=== PATIENT | female | born 1980 | race Caucasian/White ===

== ENCOUNTER 2018-05-22 08:41 | Emergency (ER) | payer MEDICAID, SELFPAY ==
[~2018-05-22] VITALS: Ht 152.4 cm; Wt 69.4 kg
[2018-05-22 09:07] LABS: MICROSCOPIC AUTO
[2018-05-22 09:08] LABS: CULTURE INDICATED? YES
--- NOTE | 2018-05-22 09:39 | NUR ---
TO ROOM FROM LOBBY. NAD.
--- NOTE | 2018-05-22 09:51 | NUR ---
PT REPORTS LOWER ABD PAIN X 1 YEAR, PT WAS SEEN FOR SAME 1 YEAR AGO IN [place] & TOLD TO FOLLOW-UP (UNSURE WHAT HER DIAGNOSIS WAS). PT REPORTS LABOR-LIKE PAIN AFTER INTERCOURSE & WHEN LAYING DOWN X 1 YEAR & GETTING WORSE. PT REPORTS CHANGES IN MENSTURAL CYCLE W/ INCREASED FREQUENCY & LONGER PERIODS.
[2018-05-22 10:15] LABS: BASOPHILS # (AUTO) 0.02 x10^3/uL (0-0.1); BASOPHILS % (AUTO) 0 % (0-1); EOSINOPHILS # (AUTO) 0.05 x10^3/uL (0-0.4); EOSINOPHILS % (AUTO) 1 % (1-7); LYMPHOCYTES # (AUTO) 2.19 x10^3/uL (1-3.4); LYMPHOCYTES % (AUTO) 30 % (22-44); MD NO; MEAN CORPUSCULAR HEMOGLOBIN 29.7 pg (27.0-34.8); MEAN CORPUSCULAR HGB CONC 33.4 g/dL (32.4-35.8); MEAN PLATELET VOLUME 8.4 fL (7.4-10.4); MONOCYTES # (AUTO) 0.38 x10^3/uL (0.2-0.8); MONOCYTES % (AUTO) 5 % (2-9); NEUTROPHILS # (AUTO) 4.73 x10^3/uL (1.8-6.8); NEUTROPHILS % (AUTO) 64 % (42-75); PLATELET COUNT 271 x10^3/uL (130-400); RED BLOOD COUNT 4.64 x10^6/uL (3.82-5.3); RED CELL DISTRIBUTION WIDTH 13.3 % (9.6-15.2)
[2018-05-22 10:29] LABS: ALBUMIN 3.7 g/dL (3.4-5.0); ANION GAP 4 mmol/L (5-15); CALCIUM 8.6 mg/dL (8.5-10.1); CHLORIDE 108 mmol/L (98-107)
[2018-05-22 10:33] LABS: ALANINE AMINOTRANSFERASE 28 U/L (12-78); ALKALINE PHOSPHATASE 74 U/L (45-117); BILIRUBIN,TOTAL 0.4 mg/dL (0.2-1.0); CREATININE 0.81 mg/dL (0.55-1.02); TOTAL PROTEIN 7.1 g/dL (6.4-8.2)
--- NOTE | 2018-05-22 10:48 | NUR ---
pt to us.
--- NOTE | 2018-05-22 11:10 | NUR ---
pt back from us
--- NOTE | 2018-05-22 11:15 | NUR ---
all results back at this time. chart up for recheck.
[2018-05-22 11:16] VITALS: BP 99/61
--- NOTE | 2018-05-22 12:00 | NUR ---
TO BEDSDIDE TO UPDATE ON POC. AWAITING DISPO.
== END 2018-05-22 12:31 | disposition home or self-care (01) ==
LOC: ED 12:25
DX: R10.31 Right lower quadrant pain (principal); R10.30 Lower abdominal pain, unspecified; G89.29 Other chronic pain
CPT/HCPCS: 36415; 76830; 80053; 81001; 83690; 84703; 85025; 87086; 99284